=== PATIENT | female | born 1950 | race Caucasian/White ===

== ENCOUNTER → 2016-08-26 | Outpatient (CLI) | payer MEDICARE, OTHER ==
--- NOTE | 2016-08-26 10:30 | MM ---
Reason for exam: screening (asymptomatic). Last mammogram was performed 1 year and 7 months ago. History: Patient is postmenopausal. Family history of premenopausal breast cancer in sister at age 40 and breast cancer in mother at age 76. Physical Findings: A clinical breast exam by your physician is recommended on an annual basis and results should be correlated with mammographic findings. MG 3D Screening Mammo W/Cad Bilateral CC and MLO view(s) were taken. Prior study comparison: January 31, 2015, right breast MG diagnostic mammo RT w CAD. August 02, 2014, right breast MG work up mamm w CAD RT. July 18, 2014, bilateral MG screening mammo w CAD. There are scattered fibroglandular densities. Finding: There are typically benign round calcifications in both breasts. There is no discrete abnormality. ASSESSMENT: Benign, BI-RAD 2 RECOMMENDATION: Routine screening mammogram of both breasts in 1 year.
== END | disposition home or self-care (01) ==
LOC: RADMAMWWP 09:24
PROVIDERS: ATTEND Family Medicine
DX: Z12.31 Encounter for screening mammogram for malignant neoplasm of breast (principal)
CPT/HCPCS: 77063; G0202

== ENCOUNTER → 2017-11-04 | Outpatient (CLI) | payer MEDICARE, OTHER ==
--- NOTE | 2017-11-05 09:56 | MM ---
Reason for exam: screening (asymptomatic). Last mammogram was performed 1 year and 2 months ago. History: Patient is postmenopausal. Family history of premenopausal breast cancer in sister at age 40 and breast cancer in mother at age 76. Physical Findings: A clinical breast exam by your physician is recommended on an annual basis and results should be correlated with mammographic findings. MG 3D Screening Mammo W/Cad Bilateral CC and MLO view(s) were taken. Prior study comparison: August 26, 2016, bilateral MG 3d screening mammo w/cad. January 31, 2015, right breast MG diagnostic mammo RT w CAD. The breast tissue is heterogeneously dense. This may lower the sensitivity of mammography. No suspicious abnormality. ASSESSMENT: Negative, BI-RAD 1 RECOMMENDATION: Routine screening mammogram of both breasts in 1 year.
== END | disposition home or self-care (01) ==
LOC: RADMAMWWP 13:18
PROVIDERS: ATTEND Family Medicine
DX: Z12.31 Encounter for screening mammogram for malignant neoplasm of breast (principal)
CPT/HCPCS: 77063; 77067

== ENCOUNTER → 2018-05-31 | Outpatient (CLI) | payer MEDICARE ==
[2018-05-31 13:52] LABS: HGB 13.9 gm/dL (11.4-16.0); MCH 31.8 pg (25.0-35.0); MCHC 32.2 g/dL (31.0-37.0); MCV 98.7 fL (80.0-100.0); Mean Platelet Volume 6.8; Platelet Count 260 k/uL (150-450); RBC 4.36 m/uL (3.80-5.40); RDW 12.8 % (11.5-15.5); WBC 7.8 k/uL (3.8-10.6)
[2018-05-31 14:00] LABS: Anion Gap 10 mmol/L; Blood Urea Nitrogen 14 mg/dL (7-17); Carbon Dioxide 27 mmol/L (22-30); Chloride 100 mmol/L (98-107); Glucose 101 mg/dL (74-99); Potassium 4.3 mmol/L (3.5-5.1); Sodium 137 mmol/L (137-145)
== END | disposition home or self-care (01) ==
LOC: LABPAT 13:25
PROVIDERS: ATTEND Internal Medicine Cardiovascular Disease
DX: Z01.812 Encounter for preprocedural laboratory examination (principal); I25.10 Atherosclerotic heart disease of native coronary artery without angina pectoris; I25.2 Old myocardial infarction
CPT/HCPCS: 80051; 82565; 82947; 83735; 84520; 85027

== ENCOUNTER 2018-06-17 09:31 | Day surgery (SDC) | payer MEDICARE, OTHER ==
[2018-06-14 13:51] VITALS: BMI 35.0
[~2018-06-17 09:31] MED LIST: ALPRAZolam 0.25 MG TAB PO PRN; ASPIRIN 325 MG TAB PO ONE; NITROGLYCERIN SL TABS 0.4 MG TAB SUBLINGUAL PRN; SODIUM CHLORIDE 0.9% 1,000 ML in EMPTY BAG 1 BAG IV ONE
[2018-06-17 10:29] VITALS: RESP 16; TEMP 97.9
[2018-06-17] MEDS ORDERED: fentaNYL (PF) 50 MCG/ML 2 ML AMP IVP ONE (10:50)
[2018-06-17] MEDS ORDERED: MIDAZOLAM 2 MG/2 ML VIAL IVP ONE (10:50)
[2018-06-17] MEDS ORDERED: LIDOCAINE 2% INJ 20 MG/ML SQ ONE (10:51)
[2018-06-17] MEDS ORDERED: IOPAMIDOL-370 125ML BTL INJ ONE (11:04)
[2018-06-17] MEDS ORDERED: RX INFO: IV CONTRAST WAS GIVEN 1 EACH MISC MISCELLANE PRN (11:12)
[2018-06-17] MEDS ORDERED: SODIUM CHLORIDE 0.9% 1,000 ML IV SCH (11:15)
[2018-06-17 16:12] VITALS: BP 135/76; PULSE 64
--- NOTE | 2018-06-24 18:02 | P.CARDCATH ---
Date of Procedure: 06/18/18 Preoperative Diagnosis: Positive stress test with ischemia in the inferolateral wall, history of previous stent placement Postoperative Diagnosis: Patent stents in the LAD and the RCA. Total occlusion of the OM branch of the circumflex which is chronic Procedure(s) Performed: Left heart catheterization without left ventriculography Description of Procedure: HISTORY: This is a 67-year-old female with history of ischemic heart disease and previous stent placement of the left anterior descending and also right coronary artery. Patient is recent stress test showed evidence of ischemia in the inferolateral segments. Patient wanted to come off the medication Brillinta. Patient is advised to have cardiac catheterization to rule out any in-stent stenosis CONSENT:I have discussed the risks, benefits and alternative therapies for the above-mentioned procedure and for both sedation/analgesia as well as necessary blood product administration, if indicated, as they pertain to this patient. The patient has indicated understanding and acceptance of the risks and procedures discussed. PROCEDURE: Patient was brought to the lab in a fasting state. Patient was given some IV sedation. The right groin is infiltrated with lidocaine and right femoral artery was entered using Seldinger technique. A 6-Croatian catheter was left in place and selective coronary arteriography was performed. Patient tolerated the procedure well. Femoral angiogram was performed and Angio-Seal was applied for hemostasis. No immediate complications were noted and patient was transferred to [facility] in a stable condition Conscious Sedation: Versed 1mg Fentanyl 25 g Duration 22minutes HEMODYNAMICS: The aortic pressure is about 130/70. There was no gradient across the aortic valve SELECTIVE CORONARY ARTERIOGRAPHY: LEFT MAIN: This is short and patent THE LEFT ANTERIOR DESCENDING CORONARY ARTERY:. This is a good caliber vessel with patent stents in the mid and distal segments THE LEFT CIRCUMFLEX AND IS CORONARY ARTERY:. This is a moderate caliber vessel giving rise to small OM branch. There appears to be total occlusion of the second OM branch which is being supplied by collaterals THE RIGHT CORONARY ARTERY: This is a good caliber vessel with patent stents LEFT VENTRICULOGRAPHY: Not performed FINAL IMPRESSION:. Patent stent in the LAD and also in the right coronary artery. Total occluded OM branch of the circumflex PLAN: Maximal medical therapy and this factor modification PROGNOSIS: Fair
== END 2018-06-17 16:12 | disposition home or self-care (01) ==
LOC: CATHCVL 09:31
PROVIDERS: ATTEND Internal Medicine Cardiovascular Disease
DX: I25.10 Atherosclerotic heart disease of native coronary artery without angina pectoris (principal); I25.82 Chronic total occlusion of coronary artery; R94.39 Abnormal result of other cardiovascular function study; E78.5 Hyperlipidemia, unspecified; I10 Essential (primary) hypertension; I42.9 Cardiomyopathy, unspecified; E78.00 Pure hypercholesterolemia, unspecified; I25.2 Old myocardial infarction; Z95.5 Presence of coronary angioplasty implant and graft; Z79.02 Long term (current) use of antithrombotics/antiplatelets; Z79.82 Long term (current) use of aspirin; Z79.899 Other long term (current) drug therapy; Z88.5 Allergy status to narcotic agent; Z88.6 Allergy status to analgesic agent
CPT/HCPCS: 93458; C1760; C1894; C1769; J2001; J2250; J3010; Q9967

== ENCOUNTER → 2019-06-06 | Outpatient (CLI) | payer MEDICARE ==
--- NOTE | 2019-06-06 16:41 | BD ---
EXAMINATION TYPE: Axial Bone Density DATE OF EXAM: 06/06/2019 COMPARISON: 09/01/2005 CLINICAL HISTORY: Height: 65.2 IN Weight: 225 LBS RISK FACTORS HISTORY OF: Active: MODERATE Postmenopausal woman: AGE 50 TOTAL HYST Take estrogen and/or progesterone medications: NOT NOW How long: AGE 50-52 MEDICATIONS: Additional Medications: VIT D, HEART MEDS, CHOLESTEROL MEDS, HIGH BLOOD PRESSURE, GLAUCOMA DROPS EXAM MEASUREMENTS: Bone mineral densitometry was performed using the GeneAssess System. Bone mineral density as measured about the Lumbar spine is: ----- L1-L4(G/cm2): 1.269 T Score Values are as follows: ----- L2: 0.9 ----- L3: 1.1 ----- L4: 0.1 ----- L1-L4: 0.7 Bone mineral density has: Increased 10.5% since study of: 09/01/2005 Bone mineral density about the R hip (g/cm2): 0.874 Bone mineral density about the L hip (g/cm2): 1.069 T Score values are as follows: -----R Neck: -1.2 -----L Neck: 0.2 -----R Total: -1.2 -----L Total: 0.7 Bone mineral density has: Decreased -17.6% since study of: 09/01/2005 IMPRESSION: Osteopenia (T Score between -2.5 and -1). There is slightly increased risk of fracture and the patient may be considered for treatment. Re-Screen 2-5 years. NOTE: T-SCORE=SD OF THE YOUNG ADULT MEAN.
--- NOTE | 2019-06-07 09:19 | MM ---
Reason for exam: screening (asymptomatic). Last mammogram was performed 1 year and 7 months ago. History: Patient is postmenopausal. Family history of premenopausal breast cancer in sister at age 40 and breast cancer in mother at age 76. Physical Findings: A clinical breast exam by your physician is recommended on an annual basis and results should be correlated with mammographic findings. MG 3D Screening Mammo W/Cad Bilateral CC and MLO view(s) were taken. Prior study comparison: November 04, 2017, bilateral MG 3d screening mammo w/cad. August 26, 2016, bilateral MG 3d screening mammo w/cad. The breast tissue is heterogeneously dense. This may lower the sensitivity of mammography. Stable benign calcifications. There is no discrete abnormality. No significant changes when compared with prior studies. ASSESSMENT: Benign, BI-RAD 2 RECOMMENDATION: Routine screening mammogram of both breasts in 1 year.
== END | disposition home or self-care (01) ==
LOC: RADMAMWWP 11:43
PROVIDERS: ATTEND Family Medicine
DX: Z12.31 Encounter for screening mammogram for malignant neoplasm of breast (principal); M85.80 Other specified disorders of bone density and structure, unspecified site
CPT/HCPCS: 77063; 77067; 77080

== ENCOUNTER → 2021-01-11 | Outpatient (CLI) | payer MEDICARE, OTHER | END | disposition home or self-care (01) | LOC: RADMAMWWP 15:08 | PROVIDERS: ATTEND Family Medicine | DX: Z12.31 Encounter for screening mammogram for malignant neoplasm of breast (principal); Z78.0 Asymptomatic menopausal state; Z80.3 Family history of malignant neoplasm of breast | CPT/HCPCS: 77063; 77067 ==

== ENCOUNTER → 2023-02-03 | Outpatient (CLI) | payer MEDICARE, OTHER ==
--- NOTE | 2023-02-04 20:30 | MM ---
Reason for Exam: Screening (asymptomatic). Last mammogram was performed 2 year(s) and 0 month(s) ago. Patient History: Menarche at age 12. First Full-Term at age 27. Left ovary removed at age 49. Right ovary removed at age 49. Hysterectomy at age 49. Postmenopausal. Sister had breast cancer, age 40. Mother had breast cancer, age 76. Risk Values: Magalie 5 year model risk: 6.1%. NCI Lifetime model risk: 15.1%. Prior Study Comparison: 11/04/2017 Bilateral Screening Mammogram, [facility]. 06/06/2019 Bilateral Screening Mammogram, [facility]. 01/11/2021 Bilateral Screening Mammogram, [facility]. Tissue Density: There are scattered fibroglandular densities. Findings: Analyzed By CAD. Possible subtle distortion inner aspect of the left CC view middle depth. Further evaluation recommended. An area of nodularity at a posterior depth medially on the left is more defined. Neither of these show clear correlate on the MLO view. Further evaluation is recommended. Otherwise, no significant change. Overall Assessment: Incomplete: need additional imaging evaluation, BI-RAD 0 Management: Special View Mammogram of the left breast. To include spot 3-D CC (2 sites) and 3-D CC rolled lateral views. Additional 3-D lateral view. [facility] will attempt to contact patient to return for supplemental views and ultrasound if indicated. Electronically signed and approved by: Sara Malik M.D. Radiologist
== END | disposition home or self-care (01) ==
LOC: RADMAMWWP 13:09
PROVIDERS: ATTEND Family Medicine
DX: Z12.31 Encounter for screening mammogram for malignant neoplasm of breast (principal); Z78.0 Asymptomatic menopausal state; Z80.3 Family history of malignant neoplasm of breast
CPT/HCPCS: 77063; 77067

== ENCOUNTER → 2023-02-11 | Outpatient (CLI) | payer MEDICARE ==
--- NOTE | 2023-02-11 14:10 | MM ---
Reason for Exam: Follow-up at short interval from prior study. Last screening mammogram was performed less than 1 month ago. Patient History: Menarche at age 12. First Full-Term at age 27. Left ovary removed at age 49. Right ovary removed at age 49. Hysterectomy at age 49. Postmenopausal. Sister had breast cancer, age 40. Mother had breast cancer, age 76. Risk Values: Magalie 5 year model risk: 6.1%. NCI Lifetime model risk: 15.1%. Prior Study Comparison: 06/06/2019 Bilateral Screening Mammogram, [facility]. 01/11/2021 Bilateral Screening Mammogram, [facility]. 02/03/2023 Bilateral MG 3D screening mammo w/cad, [facility]. Tissue Density: Left: There are scattered fibroglandular densities. Findings: Analyzed By CAD. Subtle distortion aspect of the left breast on CC view does not persist with compression. Area of nodularity at the posterior depth medially on the left persists with compression. Benign appearing calcifications. Overall Assessment: Incomplete: need additional imaging evaluation, BI-RAD 0 Management: Diagnostic Breast Ultrasound of the left breast. A clinical breast exam by your physician is recommended on an annual basis and results should be correlated with mammographic findings. This exam should not preclude additional follow-up of suspicious palpable abnormalities. Results were given to the patient verbally at the time of exam. Note on Magalie scores and lifetime risk: 1. A Magalie score greater than 3% is considered moderate risk. If this is the case, consider specialist referral to assess eligibility for a risk reducing agent. If overall lifetime risk for the development of breast cancer is 20% or higher, the patient may qualify for future screening with alternating mammogram and breast MRI. Electronically signed and approved by: Javon Espinoza D.O.
--- NOTE | 2023-02-11 14:40 | USB ---
Reason for Exam: Additional evaluation requested from abnormal screening. Patient History: Menarche at age 12. First Full-Term at age 27. Left ovary removed at age 49. Right ovary removed at age 49. Hysterectomy at age 49. Postmenopausal. Sister had breast cancer, age 40. Mother had breast cancer, age 76. Risk Values: Magalie 5 year model risk: 6.1%. NCI Lifetime model risk: 15.1%. Prior Study Comparison: 06/06/2019 Bilateral Screening Mammogram, [facility]. 01/11/2021 Bilateral Screening Mammogram, [facility]. 02/03/2023 Bilateral MG 3D screening mammo w/cad, [facility]. Findings: Targeted ultrasound left breast from 8-10 o'clock was performed. There is an irregular hypoechoic mass identified in the left breast at 10:00 10 cm from the nipple without internal color flow. This demonstrates angular borders and measures 0.5 x 0.6 x 0.7 cm. Demonstrates antiparallel orientation with no posterior acoustic features. Overall Assessment: Suspicious, BI-RAD 4 Management: Ultrasound Core Biopsy of the left breast. A clinical breast exam by your physician is recommended on an annual basis and results should be correlated with mammographic findings. This exam should not preclude additional follow-up of suspicious palpable abnormalities. Results were given to the patient verbally at the time of exam. Electronically signed and approved by: Javon Espinoza D.O.
== END | disposition home or self-care (01) ==
LOC: RADMAMWWP 13:36
PROVIDERS: ATTEND Family Medicine
DX: R92.8 Other abnormal and inconclusive findings on diagnostic imaging of breast (principal); Z78.0 Asymptomatic menopausal state; Z80.3 Family history of malignant neoplasm of breast
CPT/HCPCS: 77061; 77065

== ENCOUNTER → 2023-02-26 | Day surgery (SDC) | payer MEDICARE ==
--- NOTE | 2023-02-26 14:42 | MM ---
Reason for Exam: Post Procedure Mammogram. Last screening mammogram was performed less than 1 month ago. Patient History: Menarche at age 12. First Full-Term at age 27. Left ovary removed at age 49. Right ovary removed at age 49. Hysterectomy at age 49. Postmenopausal. Sister had breast cancer, age 40. Mother had breast cancer, age 76. Risk Values: Magalie 5 year model risk: 6.1%. NCI Lifetime model risk: 15.1%. Prior Study Comparison: 08/26/2016 Bilateral Screening Mammogram, [facility]. 11/04/2017 Bilateral Screening Mammogram, [facility]. 06/06/2019 Bilateral Screening Mammogram, [facility]. 01/11/2021 Bilateral Screening Mammogram, [facility]. 02/03/2023 Bilateral MG 3D screening mammo w/cad, [facility]. 02/11/2023 Left US breast limited LT, [facility]. 02/11/2023 Left MG 3D work up w/cad LT, [facility]. Tissue Density: Left: There are scattered fibroglandular densities. Overall Assessment: Post procedure mammogram for marker placement Management: Post Mammogram for Donald Placement Electronically signed and approved by: Kennedy Leon DO
--- NOTE | 2023-03-06 14:07 | USB ---
Risk Values: Magalie 5 year model risk: 6.1%. NCI Lifetime model risk: 15.1%. Prior Study Comparison: 01/11/2021 Bilateral Screening Mammogram, [facility]. 02/03/2023 Bilateral MG 3D screening mammo w/cad, [facility]. 02/11/2023 Left MG 3D work up w/cad , [facility]. Pathology Description: Location: 10 o'clock. Marker Left Behind. Needle Type: Mammotome Cores: 5 Skin Nicks: 1 Gauge: 13 The procedure of ultrasound guided core biopsy was explained to the patient. Benefits, alternatives, and risks were discussed. An informed consent was then obtained. The patient was placed in supine positioning for imaging and for the procedure. The overlying skin was prepped and draped in usual sterile fashion. Lidocaine buffered with bicarbonate was used as anesthetic into the skin and subcutaneous tissue up to area of concern in the left breast 10:00 10 cm from the nipple. A leonard was made with surgical scalpel. Under ultrasound guidance, a 12-gauge vacuum assisted biopsy gun device was used to obtain 5 core samples. Following this, a biopsy clip was left in lesion. The patient tolerated the procedure well without any immediate complication. The patient was kept in the radiology department for short stay after the procedure and then discharged home in stable condition. Postprocedure mammogram: The patient was transferred to mammography for physician ordered post procedure mammogram for clip placement verification. Impression: Successful, uncomplicated ultrasound guided core biopsy of area of concern in the breast, full pathology results to follow. Pathology Results: Result: Malignant, Invasive ductal carcinoma. LEFT BREAST, TEN O'CLOCK, NEEDLE CORE BIOPSY: Invasive moderately differentiated ductal carcinoma (grade 2). See Surgical Pathology Cancer Case Summary. Overall Assessment: Malignant Management: Surgical Consultation of the left breast. Electronically signed and approved by: Kennedy Leon DO
== END ==
LOC: RADUSWWP 12:27
PROVIDERS: ATTEND Surgery
DX: C50.412 Malignant neoplasm of upper-outer quadrant of left female breast (principal)
CPT/HCPCS: 88305; 88342; 88341; 77065; 19083; A4648

== ENCOUNTER → 2023-03-26 | Outpatient (CLI) | payer MEDICARE ==
--- NOTE | 2023-03-26 14:23 | P.GSHP ---
History of Present Illness H&P Date: 03/26/23 Chief Complaint: stage 1 invasive ductal cancer 10 oclock left breast Julianne is a 72 year old white female seen in consultation for DR. Huynh regarding a biopsy proven left breast invasive ductal cancer. She had a bilateral mammogram on 02-03-23 which led to a left breast ultrasound on 02-11-23. Recommendation was for a core biopsy of a 0.7 cm lesion at 10:00. This was + for invasive ductal cancer. This did not correlate with a lesion of concern noted on mammogram and stero biopsy of the second lesion was recommended. This was reviewed with Dr. Nino. She did not feel any new lumps masses or nodules of concern in either breast. This was found on a routine mammogram. She gets mammograms yearly. Has never had any surgery on her breast. Caffeine: occasional nicotine: none chocolate: daily hormones: hormone replacement after hysterectomy several years ago > 20 years ago Hormonal History: menarche: 12 M1 age at first :26, breast fed: yes menopause: hysterectomy at 50, took ovaries, done for bleeding Family History: mother: breast cancer sister: two types of breast cancer bilateral materanl aunt: ovarian cancer Surgical History: fractured ankle STEPHANIE carpel tunnel cardiac stints placed in 2004 eye surgeries/cataract/glaucoma/ Medical History: [place] in 2004 HTN high cholesterol Social History: nicotine: none alcohol: none drugs: none - Constitutional Constitutional: Denies chills, Denies fever - EENT Eyes: bilateral as per HPI Ears: bilateral: tinnitus Ears, nose, mouth and throat: Denies headache, Denies sore throat - Breasts Breasts: bilateral: as per HPI - Cardiovascular Cardiovascular: Reports as per HPI, Reports shortness of breath, Denies chest pain - Respiratory Respiratory: Denies cough, Denies 7 - Gastrointestinal Gastrointestinal: Denies abdominal pain, Denies diarrhea, Denies nausea, Denies vomiting - Genitourinary (Female) Genitourinary: Denies dysuria, Denies hematuria - Menstruation Menstruation: Reports post hysterectomy - Musculoskeletal Musculoskeletal: Reports myalgias - Integumentary Comment: eczema - Neurological Neurological: Denies numbness, Denies weakness - Psychiatric Psychiatric: Denies anxiety, Denies depression - Endocrine Endocrine: Denies fatigue, Denies weight change - Hematologic/Lymphatic Comment: aspirin - Allergic/Immunologic Allergic/Immunologic: Reports seasonal allergies Past Medical History Past Medical History: Eye Disorder, Myocardial Infarction ([place]) Additional Past Medical History / Comment(s): 02/19/15 Pt transferred from [facility] where she had presented with non STEMI. Pt went to [facility] [employer] for PTCA with stents x2. 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 Last Myocardial Infarction Date:: 02/19/15 History of Any Multi-Drug Resistant Organisms: None Reported Past Surgical History: Heart Catheterization, Heart Catheterization With Stent, Hysterectomy Additional Past Surgical History / Comment(s): 02/19/15 PTCA with stent X 3 to mid LAD and stent X 1 to mid RCA. Other SX HX: Bialteral cataract removal, L ankle fx repair with pinning. Past Anesthesia/Blood Transfusion Reactions: No Reported Reaction Additional Past Anesthesia/Blood Transfusion Reaction / Comment(s): Pt has never recieved blood. Date of Last Stent Placement:: 02/19/15 Past Psychological History: No Psychological Hx Reported Additional Psychological History / Comment(s): Pt's adult seda resides with her. Pt is pretty independent. She is legally blind-her vision abilities vary day to day due to retinal tears bilaterally and a hx of R? eye ocular stroke and bilat eral glaucoma. She uses the [employer] bus at times to get places, or her seda drives her. She has no home care. She uses no assistive devices. Smoking Status: Never smoker Past Alcohol Use History: None Reported Past Drug Use History: None Reported - Past Family History Mother Family Medical History: Cancer Additional Family Medical History / Comment(s): Mother had breast cancer. Sister(s) Family Medical History: Cancer Additional Family Medical History / Comment(s): Sister had breast cancer. Medications and Allergies Home Medications Medication Instructions Recorded Confirmed Type Multivitamins, Thera [Multivitamin 1 tab PO DAILY 02/19/15 03/26/23 History (formulary)] Vits A,C,E/Lutein/Minerals 1 tab PO DAILY 02/19/15 03/26/23 History [Ocuvite with Lutein Tablet] Aspirin 81 mg PO DAILY #30 chew 02/22/15 03/26/23 Rx Nitroglycerin Sl Tabs [Nitrostat] 0.4 mg SUBLINGUAL Q5M PRN #25 tab 02/22/15 03/26/23 Rx Cholecalciferol [Vitamin D3 (25 1,000 unit PO DAILY 06/14/18 03/26/23 History Mcg = 1000 Iu)] Metoprolol Tartrate 25 mg PO BID 06/14/18 03/26/23 History Rosuvastatin [Crestor] 10 mg PO HS 06/14/18 03/26/23 History Travoprost [Travatan Z 0.004%] 1 drop BOTH EYES HS 06/14/18 03/26/23 History Enalapril [Vasotec] 5 mg PO DAILY 02/12/23 03/26/23 History Allergies Allergy/AdvReac Type Severity Reaction Status Date / Time hydrocodone [From Vicodin] Allergy Itching Verified 03/26/23 13:37 timolol Allergy itchy Verified 03/26/23 13:37 rash, eyes got red and swollen acetaminophen [From Vicodin] AdvReac Itching Verified 03/26/23 13:37 Surgical - Exam Vital Signs Temp Pulse Resp BP Pulse Ox 98.3 F 80 17 136/84 96 03/26/23 13:53 03/26/23 13:53 03/26/23 13:53 03/26/23 13:53 03/26/23 13:53 - General no distress - ENT no hearing loss - Neck trachea midline - Respiratory normal respiratory effort - Cardiovascular Heart Sounds: normal: S1, S2 - Abdomen Abdomen: soft, non tender, no guarding, no rigid, no rebound - Integumentary normal turgor - Musculoskeletal difficulty with ambulation , pain right knee - Psychiatric oriented to time, oriented to person, oriented to place, speech is normal, denilson ry intact Breast Exam: BRA: 40C Inspection: Bilateral grade 2/3 ptosis Palpation: Right breast: Multiple positional exam fibrocystic changes, no dominant masses or nodules of concern Right axilla: No adenopathy of concern Left breast colon biopsy site identified no evidence of hematoma or ecchymosis, multiple positional exam fibroglandular tissue no dominant masses or nodules of concern Left axilla: No adenopathy of concern Results mammogram reviewed with mere Tineo fo second site in left breast via 3D stero recommended Assessment and Plan Assessment: Impression: [place] in 2004 HTN high cholesterol abnormal second site left breast, 3Dstero recommended Plan: 3Dstero left breast presentation at tumor board CC: Dr. Huynh
[2023-03-26 16:08] VITALS: BP 136/84; PULSE 80; RESP 17; TEMP 98.3
== END ==
LOC: WWCWWP 12:47
PROVIDERS: ATTEND Surgery
DX: C50.912 Malignant neoplasm of unspecified site of left female breast (principal); E78.00 Pure hypercholesterolemia, unspecified; I10 Essential (primary) hypertension; I25.2 Old myocardial infarction; Z80.3 Family history of malignant neoplasm of breast; Z86.73 Personal history of transient ischemic attack (TIA), and cerebral infarction without residual deficits; Z88.5 Allergy status to narcotic agent; Z95.5 Presence of coronary angioplasty implant and graft; Z88.8 Allergy status to other drugs, medicaments and biological substances; Z79.899 Other long term (current) drug therapy

== ENCOUNTER → 2023-07-03 | Outpatient (CLI) | payer MEDICARE ==
[2023-07-03 15:51] LABS: HCT 42.6 % (37.2-46.3); MCHC 32.9 g/dL (32.0-37.0); MCV 97.5 FL (80.0-97.0); Mean Platelet Volume 10.2 FL (9.5-12.2); NRBC Per 100 WBC 0 X 10*3/uL (0.00-0.01); Platelet Count 314 X 10*3/uL (140-440); RBC 4.37 X 10*6/uL (4.10-5.20); RDW 12.9 % (11.5-14.5); WBC 8.54 X 10*3/uL (4.50-10.00)
== END | disposition home or self-care (01) ==
LOC: LABWHC1 08:52
PROVIDERS: ATTEND Surgery Surgical Oncology
DX: Z01.812 Encounter for preprocedural laboratory examination (principal)
CPT/HCPCS: 36415; 85027; 86850; 86900; 86901

== ENCOUNTER → 2023-08-21 | Outpatient (CLI) | payer MEDICARE ==
--- NOTE | 2023-08-21 14:03 | BD ---
EXAMINATION TYPE: Axial Bone Density DATE OF EXAM: 08/21/2023 CLINICAL HISTORY: 72 years old Female. ICD-10 CODE: C50.212 BREAST CANCER,Z71.3,I25.2,E78.5 Height: 64.7 Weight: 223 FRAX RISK QUESTIONS: History of Fracture in Adulthood: yes 3. Menopause before 45: no 50 yrs....total hyst RISK FACTORS HISTORY OF: breast cancer with treatments, hx of severe lt ankle fxs both sides, with pain now hx of right wrist fx last year MEDICATIONS: vit d, cholesterol meds, BP meds EXAM MEASUREMENTS: Bone mineral densitometry was performed using the Waterfall System. Bone mineral density as measured about the Lumbar spine is: ----- L1-L4(G/cm2): 1.311 T Score Values are as follows: ----- L1: 1.2 ----- L2: 0.8 ----- L3: 1.8 ----- L4: 0.4 ----- L1-L4: 1.1 Z Score Values are as follows: ----- L1: 1.8 ----- L2: 1.4 ----- L3: 2.4 ----- L4: 09 ----- L1-L4: 1.6 Bone mineral density has: Increased 3.3% since study of: 06.06.2019 Bone mineral density about the R hip (g/cm2): 0.835 Bone mineral density about the L hip (g/cm2): 1.062 T Score values are as follows: -----R Neck: -1.4 -----L Neck: -0.6 -----R Total: -1.4 -----L Total: 0.4 Z Score values are as follows: -----R Neck: -0.3 -----L Neck: 0.5 -----R Total: -0.6 -----L Total: 1.2 Bone mineral density has: Decreased -2.9% since study of: 06.06.2019 FRAX%s: The graph provided illustrates a 14.7% chance for a major osteoporotic fx and a 2.1% chance f or the hips probability for fx in 10 years time. IMPRESSION: Osteopenia (T Score between -2.5 and -1). There is slightly increased risk of fracture and the patient may be considered for treatment. Re-Screen 2-5 years. NOTE: T-SCORE=SD OF THE YOUNG ADULT MEAN.
== END | disposition home or self-care (01) ==
LOC: RADBDWWP 12:31
PROVIDERS: ATTEND Internal Medicine
DX: C50.212 Malignant neoplasm of upper-inner quadrant of left female breast (principal); I25.2 Old myocardial infarction; E78.5 Hyperlipidemia, unspecified; M85.89 Other specified disorders of bone density and structure, multiple sites; I10 Essential (primary) hypertension; Z71.3 Dietary counseling and surveillance; Z78.0 Asymptomatic menopausal state
CPT/HCPCS: 77080

== ENCOUNTER → 2024-02-29 | Outpatient (CLI) | payer MEDICARE ==
--- NOTE | 2024-03-18 20:34 | MM ---
Reason for Exam: Hx of breast cancer, mastectomy. Last mammogram was performed 1 year(s) and 1 month(s) ago. Patient History: Menarche at age 12. First Full-Term at age 27. Left ovary removed at age 49. Right ovary removed at age 49. Hysterectomy at age 49. Postmenopausal. Breast cancer, left, age 72. Mastectomy on the Left side. 02/26/2023, Malignant US biopsy breast VAD LT on the left side. Sister had breast cancer, age 40. Mother had breast cancer, age 76. Prior Study Comparison: 01/11/2021 Bilateral Screening Mammogram, [facility]. 02/03/2023 Bilateral MG 3D screening mammo w/cad, [facility]. 02/11/2023 Left US breast limited LT, [facility]. 02/11/2023 Left MG 3D work up w/cad LT, [facility]. 02/26/2023 Left MG diagnostic mammo LT wo CAD., [facility]. Tissue Density: Right: There are scattered areas of fibroglandular density. Findings: There is no suspicious group of microcalcifications or new suspicious mass in either breast. Overall Assessment: Negative, BI-RAD 1 Management: Screening Mammogram of the right breast in 1 year. . Patient should continue monthly self-breast exams. A clinical breast exam by your physician is recommended on an annual basis. This exam should not preclude additional follow-up of suspicious palpable abnormalities. Electronically signed and approved by: Sara Malik M.D. Radiologist
== END | disposition home or self-care (01) ==
LOC: RADMAMWWP 12:59
PROVIDERS: ATTEND Internal Medicine
DX: Z12.31 Encounter for screening mammogram for malignant neoplasm of breast
CPT/HCPCS: 77067